=== PATIENT | female | born 1980 | race African-American/Black ===

== ENCOUNTER 2020-02-24 00:56 | Outpatient (CLI) | payer OTHER, SELFPAY ==
[2020-02-24 20:48] LABS: SARS-CoV-2 RNA PCR Negative
== END 2020-02-24 00:57 | disposition home or self-care (01) ==
LOC: ANHCOVIDDT 00:56
PROVIDERS: Visit Provider Obstetrics & Gynecology
DX: Z01.812 Encounter for preprocedural laboratory examination (principal); Z11.59 Encounter for screening for other viral diseases
CPT/HCPCS: 87635; C9803; U0003

== ENCOUNTER 2020-02-24 08:21 | Outpatient (CLI) | payer OTHER, SELFPAY ==
--- NOTE | 2020-02-24 08:25 | ECG_ITS ---
Measurements Intervals [place] Rate: 58 P: 31 WA: 186 QRS: 14 QRSD: 89 T: 26 QT: 409 QTc: 403 Interpretive Statements SINUS BRADYCARDIA WITH MARKED SINUS ARRHYTHMIA BORDERLINE ECG Electronically Signed On 02-24-2020 8:39:54 CDT by Gallito Anna D.O.
[2020-02-24 08:43] LABS: Basophils Percent Auto 0.3 % (0.2-1.2); Eosinophils Absolute Auto 0.2 K/mm3 (0-0.3); Hematocrit 37.3 % (37.0-47.0); Hemoglobin 12.5 g/dL (12.0-15.0); Immature Granulocyte Absolute 0.02 K/mm3 (0.00-0.031); Immature Granulocyte Percent A 0.2 % (0-0.5); Lymphocytes Absolute Auto 2.97 K/mm3 (0.9-3.2); Lymphocytes Percent Auto 29.9 % (18.3-44.2); Mean Corpuscular HGB Conc 33.5 g/dl (32-36); Mean Corpuscular Hemoglobin 31.3 pg (26-34); Mean Corpuscular Volume 93.5 fl (80-100); Mean Platelet Volume 9.3 fl (7.4-10.4); Monocytes Absolute Auto 0.5 K/mm3 (0.1-0.6); Monocytes Percent Auto 4.9 % (2.6-8.5); Neutrophils Absolute Auto 6.2 K/mm3 (1.3-6.7); Neutrophils Percent Auto 62.7 % (45.5-73.1); Platelet Count Result 246 k/mm3 (150-375); Red Blood Count 3.99 M/mm3 (4.2-5.4); Red Cell Distribution Width 14.6 % (11.5-14.5); White Blood Count 9.9 K/mm3 (4.5-10.0)
== END 2020-02-24 08:22 | disposition home or self-care (01) ==
LOC: ANHSURGERY 08:25
PROVIDERS: PCP Family Medicine; Visit Provider Obstetrics & Gynecology
DX: Z01.812 Encounter for preprocedural laboratory examination (principal); R10.2 Pelvic and perineal pain; I10 Essential (primary) hypertension
CPT/HCPCS: 36415; 85025; 86850; 86900; 86901; 93005

== ENCOUNTER 2020-02-26 01:02 | Day surgery (SDC) | payer OTHER, SELFPAY ==
[2020-02-17 09:27] VITALS: BMI 44.6
--- NOTE | 2020-02-17 10:39 | PM.IMHP ---
H&P: HPI History of Present Illness Date/Time: 02/17/20 10:39 Chief complaint: Enlarged uterus, Irr. Bleed. Fibroids, Pel Pain,Se Narrative: Lynn Antunez is a 39 year old female Review of Systems Review of Systems: All systems reviewed & are unremarkable except as noted in HPI and below PMFSH Past Medical History Medical History Back pain Hypertension Morbid obesity Pelvic pain Polysubstance abuse Smoker Uterine fibroid Social History Social History Smoking packs per day: 0.5 Smoking cigarettes per day: 10.0 Years smoked: 10 Smoking pack-years: 5.00 Smoking status: Current every day smoker Tobacco type: cigarettes Substance use: current Substance use type: marijuana Last use: 02/16/20 Spiritual care concerns: No Meds Home Medications and Allergies Home Medications Medication Instructions Recorded Confirmed Type atenolol 50 mg PO DAILY 02/17/20 02/26/20 History Allergies Allergy/AdvReac Type Severity Reaction Status Date / Time No Known Allergies Allergy Verified 02/17/20 09:27 Exam Const: General: no acute distress Eyes: General: appearance normal, both eyes and all related structures Neck: Neck: supple and no JVD Thyroid: thyroid normal Resp: Effort & Inspection: normal respiratory effort Auscultation: clear to auscultation bilaterally Cardio: Rate: regular rate Rhythm: regular rhythm GI: Inspection: non-distended GI Palp: Yes Soft to palpation, No Tenderness to palpation present (GI) and No Guarding due to palpation present (GI) Auscultation: normal bowel sounds : External Female Exam: normal external appearance Speculum Exam - Cervix: normal appearance of the cervix Bimanual exam- vagina & uterus: enlarged Skin: General skin exam: no rashes or lesions noted Extrem: General: normal to inspection and no edema Psych: Mental Status: mental status grossly normal Affect: normal affect Assessment and Plan Additional Plan impression: enlarged uterus/pain Plan:robotic tvh/bilateral salpingectomies
--- NOTE | 2020-02-24 12:39 | PM.IMHP ---
H&P: HPI History of Present Illness Date/Time: 02/24/20 12:39 Chief complaint: Enlarged uterus, Irr. Bleed. Fibroids, Pel Pain,Se Narrative: Lynn Antunez is a 39 year old female Is admitted for robotic total vaginal hysterectomy and bilateral salpingectomy secondary to enlarged fibroid uterus. She has had heavy bleeding she had prolapse she is having dyspareunia. Ultrasound measured the uterus [id number]. She opted for hysterectomy and bilateral salpingectomy. Risks and benefits were reviewed including but not exclusive of , aspiration pneumonia, bleeding, transfusion, perforation injury to bowel, bladder, ureters, or other internal organs with need for open laparotomy. She received the ACOG handout entitled hysterectomy as well as the definite she handout. She had all questions answered and asked to proceed Review of Systems Review of Systems: All systems reviewed & are unremarkable except as noted in HPI and below [facility] Social History Social History Smoking packs per day: 0.5 Smoking cigarettes per day: 10.0 Years smoked: 10 Smoking pack-years: 5.00 Smoking status: Current every day smoker Tobacco type: cigarettes Substance use: current Substance use type: marijuana Last use: 02/16/20 Spiritual care concerns: No Meds Home Medications and Allergies Home Medications Medication Instructions Recorded Confirmed Type atenolol 50 mg PO DAILY 02/17/20 02/17/20 History Allergies Allergy/AdvReac Type Severity Reaction Status Date / Time No Known Allergies Allergy Verified 02/17/20 09:27 Exam Const: General: no acute distress Eyes: General: appearance normal, both eyes and all related structures Neck: Neck: supple and no JVD Thyroid: thyroid normal Resp: Effort & Inspection: normal respiratory effort Auscultation: clear to auscultation bilaterally Cardio: Rate: regular rate Rhythm: regular rhythm GI: Inspection: non-distended GI Palp: Yes Soft to palpation, No Tenderness to palpation present (GI) and No Guarding due to palpation present (GI) Auscultation: normal bowel sounds : General: Yes bladder normal to inspection External Female Exam: normal external appearance Speculum Exam - Vagina: normal appearance of the vagina Speculum Exam - Cervix: Cervical os closed Bimanual exam- vagina & uterus: enlarged and Uterus displaced ( second-degree prolapse is present:) Skin: General skin exam: no rashes or lesions noted Extrem: General: normal to inspection and no edema Psych: Mental Status: mental status grossly normal Affect: normal affect Assessment and Plan Additional Plan Impression: Uterine prolapse and enlarged uterus with a history of heavy bleeding Plan: Robotic total vaginal hysterectomy and bilateral salpingectomy
--- NOTE | 2020-02-25 13:19 | WPDANESEPP ---
Anes - Eval Pre Procedure Procedure: Operation Date: 02/26/20 07:30 Proposed Procedures p Robotic Assisted Total Vaginal Hysterectomy, Bilateral Salpingectomy - Jose G Rudolph MD Date/Time: 02/25/20 13:19 Pre Op Diagnosis: Enlarged uterus, Irr. Bleed. Fibroids, Pel Pain,Se Patient Data Age: 39 Gender: F Height: 5 ft 4 in Weight: 117.93 kg Allergies Allergy/AdvReac Type Severity Reaction Status Date / Time No Known Allergies Allergy Verified 02/17/20 09:27 Home Medications Medication Instructions Recorded Confirmed Type atenolol 50 mg PO DAILY 02/17/20 02/17/20 History Patient hx anesthesia problems: none Family hx anesthesia problems: none PMFSH Past Medical History Medical History (Updated 02/25/20 @ 13:21 by Theo Mueller CRNA) Back pain Hypertension Morbid obesity Pelvic pain Polysubstance abuse Smoker Uterine fibroid Social History Social History Smoking packs per day: 0.5 Smoking cigarettes per day: 10.0 Years smoked: 10 Smoking pack-years: 5.00 Smoking status: Current every day smoker Tobacco type: cigarettes Substance use: current Substance use type: marijuana Last use: 02/16/20 Spiritual care concerns: No Exam Day of Procedure 02/25/20 13:19
[2020-02-26] VITALS (17 sets, daily range): BP systolic 107–150; BP diastolic 63–92; PULSE 42–88; RESP 9–20; TEMP 36.2–37.4; O2SAT 93–100
[2020-02-26] MEDS: LACTATED RINGERS 1,000 ML 30 ML IV CONT ×2 (06:34→09:13)
--- NOTE | 2020-02-26 06:53 | WPDHPUPDATE1 ---
History and Physical Update Update Date/Time: 02/26/20 06:53 History and Physical has been reviewed, including an updated exam of the patient. There are NO changes in the patient's condition. Risks, benefits, and alternatives have been discussed and questions answered. Patient agrees to proceed with procedure.
[2020-02-26] MEDS: KETOROLAC 15 MG/ML VIAL (*BKC) IV PUSH (06:59)
[2020-02-26] MEDS: ACETAMINOPHEN 500 MG TABLET 1000 MG PO (06:59)
--- NOTE | 2020-02-26 07:04 | WPDANESEPPF ---
Anes - Initial Pre Proc Eval Procedure: Operation Date: 02/26/20 07:30 Proposed Procedures p Robotic Assisted Total Vaginal Hysterectomy, Bilateral Salpingectomy - Jose G Rudolph MD Date/Time: 02/26/20 07:04 Surgeon: Jose G Rudolph MD Pre Op Diagnosis: Enlarged uterus, Irr. Bleed. Fibroids, Pel Pain,Se Patient Data Age: 39 Gender: F Height: 5 ft 4 in Weight: 118.2 kg Last Vital Signs Temp 36.5 C 02/26/20 06:55 Pulse 67 02/26/20 06:55 BP 150/92 H 02/26/20 06:55 Pulse Ox 100 02/26/20 06:55 Allergies Allergy/AdvReac Type Severity Reaction Status Date / Time No Known Allergies Allergy Verified 02/17/20 09:27 Home Medications Medication Instructions Recorded Confirmed Type atenolol 50 mg PO DAILY 02/17/20 02/26/20 History hydrocodone-acetaminophen [[place]] 1 tablet PO Q4H PRN #30 tablet 02/26/20 Rx Patient hx anesthesia problems: none Family hx anesthesia problems: none PMFSH Past Medical History Medical History Back pain Hypertension Morbid obesity Pelvic pain Polysubstance abuse Smoker Uterine fibroid Social History Social History Smoking packs per day: 0.5 Smoking cigarettes per day: 10.0 Years smoked: 10 Smoking pack-years: 5.00 Smoking status: Current every day smoker Tobacco type: cigarettes Substance use: current Substance use type: marijuana Last use: 02/16/20 Spiritual care concerns: No Anes - Eval Final PreProcedure Day of Procedure 02/26/20 07:04 Patient weight: morbidly obese Heart: regular rate and rhythm Lungs: clear to auscultation Airway: Mallampati scale class II Neurological: alert and oriented Last oral intake: >/= 8 hours ASA classification: III Emergent: no Anesthetic plan: proceed Anesthesia type and monitoring: general ETT and standard monitoring Informed Consent: The patient's anesthetic plan and its attendant risks and benefits were discussed with the patient/family/POA. Questions were solicited and answers provided to the satisfaction of the patient/family/POA.
[2020-02-26] MEDS: ceFAZolin 2 GM/D5W 50 ML 2 GM/50 ML BAG IVPB (07:28)
[2020-02-26] MEDS: SCOPOLAMINE 1.5 MG PATCH TRANSDERM (07:37)
--- NOTE | 2020-02-26 09:02 | PM.PROC ---
Procedure Note - Detailed Date of procedure: 02/26/20 Pre-op diagnosis: Enlarged uterus, Irr. Bleed. Fibroids, Pel Pain,Se Surgeon: Jose G Rudolph MD Postop diagnosis: Enlarged uterus /bleeding refractory to medical therapy /uterine fibroids /pelvic pain Procedure: Robotic total hysterectomy and bilateral salpingectomies EBL: 100cc Anesthesia: General endotracheal Complications: None Findings: A markedly enlarged uterus. Mildly enlarged tubes bilaterally. Normal-appearing ovaries. Pelvic adhesions. Description of procedure: The patient was prepped and draped in the normal sterile fashion and placed in the dorsal lithotomy position. Under excellent general endotracheal anesthesia weighted speculum was placed in the posterior fornix of vagina. Anterior lip of the cervix was grasped with a single-tooth tenaculum. The uterus sounded to 14cm. Serial dilatation with fragmented dilators performed. This was followed by passage of the 12. JAZ and the 4. Cold cup. Sixteen [place] catheter was placed to drain clear urine. The remainder the instruments removed. The gloves were changed. A supraumbilical incision was made. The Veress needle was passed in the abdomen. The abdomen was filled with CO2 gas [id number]. The 8mm trocar was advanced in the abdomen. The downside visualized no injury seen the gas was reattached and the patient placed in Trendelenburg. 8Mm incisions were made in the low right and left lower quadrants. The 8mm trocars were then advanced under direct visualization assuring no injury. A 10mm trocar was advanced after incision made the right upper quadrant. This was visualized assuring no injury. The robot was docked multiple adhesions were seen anteriorly from the bladder to the top of the uterus as well as omental adhesions anteriorly these were sharply dissected till they were clear. The round ligament on the left was clamped, burned, cut anteriorly slip a slowly a bladder flap was made to dissect the bladder to the caudally from the uterus and cervix to the opposite round ligament was clamped, burned, cut. Next the left fallopian tube was serially skeletonized and teased by sharp dissection and cautery from the overlying ovary. This was repeated on the contralateral side conserving the right ovary. The left utero-ovarian ligament was then skeletonized conserving the left ovary this was clamped, burned, cut and brought to the level of previously cut round ligament. In like fashion conserving the right ovary the utero-ovarian ligament was clamped, burned, cut brought to the level of previously cut round ligament. Next on the left serial dissection was undertaken with the cardinal and broad ligaments by serially clamping, burning, and cut and is down the lateral edge of the cervix and uterus until the large tortuous blood vessels could be seen these were individually clamped, burned, cut. In like fashion the cardinal and broad ligaments on the right were serially skeletonized clamped, burned, cut and brought down to the level of the large tortuous vessels on the right these were individually clamped, burned, cut. Blanching the uterus was noted and a colpotomy incision was made the cervix uterus and tubes removed through the vagina the uterus measured greater than 230 g. The vagina was then irrigated and blood loss was estimated. The vagina was closed with continuous running 0V lock from lateral edge to lateral edge and back to the midline. Irrigation was undertaken to clear the the raw surface area was prepped cold with [place] term. The hemostasis was assured the lower sites were removed after the robot was undocked. Gas was removed from the abdomen. The incisions were closed with 4 O Vicryl glue blood loss was estimated [id number]. All sponge, needle, instrument counts were correct. There were no immediate complications noted
[2020-02-26] MEDS: ENOXAPARIN 40 MG/0.4 ML SYRINGE SUB-Q (11:03)
[2020-02-26] MEDS: DEXTROSE 5%/LACTATED RINGERS 1,000 ML 125 ML IV CONT (11:03)
[2020-02-26] MEDS: KETOROLAC 30 MG/ML VIAL (*BKC) IV PUSH ×2 (12:57→20:31)
[2020-02-26] MEDS: DOCUSATE SODIUM 100 MG CAPSULE PO (16:33)
[2020-02-27 00:15] VITALS: BP 111/65; PULSE 48; RESP 18; TEMP 36.7; O2SAT 100
[2020-02-27 04:30] VITALS: BP 135/77; PULSE 76; RESP 18; TEMP 36.8; O2SAT 100
[2020-02-27 05:26] LABS: Basophils Percent Auto 0.1 % (0.2-1.2); Hematocrit 32.5 % (37.0-47.0); Hemoglobin 10.7 g/dL (12.0-15.0); Immature Granulocyte Absolute 0.07 K/mm3 (0.00-0.031); Immature Granulocyte Percent A 0.4 % (0-0.5); Lymphocytes Absolute Auto 2.36 K/mm3 (0.9-3.2); Mean Corpuscular HGB Conc 32.9 g/dl (32-36); Mean Corpuscular Hemoglobin 30.1 pg (26-34); Mean Corpuscular Volume 91.5 fl (80-100); Mean Platelet Volume 10.1 fl (7.4-10.4); Monocytes Absolute Auto 1.1 K/mm3 (0.1-0.6); Monocytes Percent Auto 6.9 % (2.6-8.5); Neutrophils Absolute Auto 12.2 K/mm3 (1.3-6.7); Neutrophils Percent Auto 77.6 % (45.5-73.1); Platelet Count Result 217 k/mm3 (150-375); Red Blood Count 3.55 M/mm3 (4.2-5.4); Red Cell Distribution Width 14.2 % (11.5-14.5); White Blood Count 15.7 K/mm3 (4.5-10.0)
[2020-02-27] MEDS: DOCUSATE SODIUM 100 MG CAPSULE PO (06:52)
[2020-02-27] MEDS: SIMETHICONE 80 MG TAB.CHEW PO ×2 (06:52→09:17)
[2020-02-27 06:59] VITALS: BP 131/89; PULSE 50; RESP 20; TEMP 36.9
--- NOTE | 2020-02-27 07:34 | PM.DS ---
DS: Admitting Diagnosis Admitting Diagnosis Admitting Diagnosis: Enlarged uterus, Irr. Bleed. Fibroids, Pel Pain,Se DS: Summary Hospital Course Hospital Course: Lynn Antunez was admitted after robotic assisted total laparoscopic hysterectomy and bilateral salpingectomy for abnormal uterine bleeding, uterine fibroids, enlarged uterus. The above procedure was performed with no complications. She is doing well post op. She states her pain is well controlled with PO medications. She reports minimal bleeding. She is ambulating up to the chair. Her becker catheter was removed. She is tolerating PO without N/V. She reports passing flatus. Status at Discharge Overall status at discharge: patient is progressing back to baseline Time Spent with Patient Time attestation: Total time spent providing and/or coordinating discharge services: Time spent: Less than 30 minutes Exam Const: General: comfortable and no acute distress Limitations: no limitations Resp: Effort & Inspection: normal respiratory effort Auscultation: clear to auscultation bilaterally Cardio: Rate: regular rate Rhythm: regular rhythm GI: Inspection: non-distended GI Palp: Yes Soft to palpation, Yes Tenderness to palpation present (GI) (milder tenderness to deep palpation) and No Guarding due to palpation present (GI) Auscultation: normal bowel sounds Other: incisions C/D/I covered with dermabond Urinary Catheter: Urinary Catheter: urine clear Skin: General skin exam: normal color Extrem: General: normal to inspection Psych: Mental Status: mental status grossly normal Affect: normal affect DS: Data Data Completed and Pending Pending studies at discharge: Pending at discharge 02/26/20 08:43 Surgical [PTH] Routine Labs on day of discharge: Labs from last 24 hours 02/27/20 04:15 WBC 15.7 H RBC 3.55 L Hgb 10.7 L Hct 32.5 L MCV 91.5 MCH 30.1 MCHC 32.9 RDW 14.2 Plt Count 217 MPV 10.1 Immature Gran % (Auto) 0.4 Neut % (Auto) 77.6 H Lymph % (Auto) 15.0 L [place] % (Auto) 6.9 Eos % (Auto) 0.0 Baso % (Auto) 0.1 L Lymph # (Auto) 2.36 [place] # (Auto) 1.1 H Eos # (Auto) 0.0 Baso # (Auto) 0.0 Abs Immat Gran (auto) 0.07 H Absolute Neuts (auto) 12.2 H Absolute Nucleated RBC 0.0 Nucleated RBC % 0.0 Discharge Plan Discharge Patient Disposition: Home, Self-Care Patient Instructions: Hysterectomy (DC) Stand Alone Forms: General Discharge Instructions Follow-up/Referrals: Jose G Rudolph MD [Physician] - Discharge Medications: New hydrocodone-acetaminophen [[place]] 5-325 mg tablet 1 tablet PO Q4H PRN (Reason: pain) Qty: 30 RF: 0 No Action atenolol 50 mg tablet 50 mg PO DAILY RF: 0 Primary Care Provider: Nirmala,Jose G Aceves Attending physician on admission: Jose G Rudolph
== END 2020-02-27 11:43 | disposition home or self-care (01) ==
LOC: ANHSURGERY 06:56 → ANHOB2 10:26
PROVIDERS: PCP Family Medicine; Visit Provider Obstetrics & Gynecology
PROC: (CPT 58552; principal; 2020-02-26 07:30)
DX: D25.1 Intramural leiomyoma of uterus (principal); N83.8 Other noninflammatory disorders of ovary, fallopian tube and broad ligament; N70.11 Chronic salpingitis; N94.89 Other specified conditions associated with female genital organs and menstrual cycle; K66.0 Peritoneal adhesions (postprocedural) (postinfection); I10 Essential (primary) hypertension; E66.01 Morbid (severe) obesity due to excess calories; Z68.41 Body mass index [BMI] 40.0-44.9, adult; F19.10 Other psychoactive substance abuse, uncomplicated; F17.210 Nicotine dependence, cigarettes, uncomplicated; Z79.899 Other long term (current) drug therapy
CPT/HCPCS: 58552; S2900; 36415; 85025; 86850; 86900; 86901; 87635; 88307; 93005; 99199; A9270; C9803; J0690; J1100; J1650; J1885; J2250; J2405; J2704; J2710; J3010; J7030; J7120; J7121; U0003